=== PATIENT | male | born 1965 | race Caucasian/White ===

== ENCOUNTER 2022-04-12 18:23 | Emergency (ER) | payer SELFPAY ==
[~2022-04-12] VITALS: Ht 175.3 cm; Wt 63.5 kg
--- NOTE | 2022-04-12 18:25 | NUR ---
BIBA TO BED 2.
[2022-04-12 18:28] VITALS: BP 117/72
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
--- NOTE | 2022-04-12 20:00 | NUR ---
RESTING IN BED WITH EYES CLOSED, RESPIRATIONS REGULAR AND UNLABORED
--- NOTE | 2022-04-12 22:01 | NUR ---
CONTINUES TO REST QUIETLY IN NAD
--- NOTE | 2022-04-13 | NUR ---
resting in bed with eyes closed. respirations regular and unlabored
--- NOTE | 2022-04-13 04:26 | NUR ---
Patient ambulated to restroom.
--- NOTE | 2022-04-13 04:33 | NUR ---
Dr. Gacría examining patient.
[2022-04-13 05:07] VITALS: BP 122/80
--- NOTE | 2022-04-13 05:07 | NUR ---
Patient discharged with v/s stable. Written and verbal after care instructions given and explained. Patient verbalized understanding. Ambulatory with steady gait. All questions addressed prior to discharge. Advised to follow up with PMD.
== END 2022-04-13 05:07 | disposition home or self-care (01) ==
LOC: MED 18:23
DX: F10.129 Alcohol abuse with intoxication, unspecified (principal); Z59.00 Homelessness unspecified; F17.210 Nicotine dependence, cigarettes, uncomplicated; F12.90 Cannabis use, unspecified, uncomplicated
CPT/HCPCS: 70450; 99284